=== PATIENT | female | born 1975 | race African-American/Black ===

== ENCOUNTER → 2020-04-04 | Outpatient (CLI) | payer MEDICARE ==
--- NOTE | 2020-04-04 13:45 | RAD ---
CHEST PA LATERAL History: Pneumonia Comparison: None. Findings: 2 lateral and supine AP views of the chest are submitted. There is no lobar infiltrate identified by radiograph. There is no dependent pleural fluid or pneumothorax. Heart size is within normal limits. There is azygos fissure. Impression: 1. No lobar infiltrate is identified by radiograph. Electronically signed by: Tim Tomas MD (04/04/2020 1:42 PM) [id number]
== END ==
LOC: RAD 13:14
PROVIDERS: ATTEND Nurse Practitioner Family
DX: Q33.1 Accessory lobe of lung (principal); Z87.01 Personal history of pneumonia (recurrent)
CPT/HCPCS: 71046